=== PATIENT | female | born 1980 | race Caucasian/White ===

== ENCOUNTER 2022-10-19 17:53 | Emergency (ER) | payer BC ==
[~2022-10-19] VITALS: Ht 172.7 cm; Wt 97.7 kg
[2022-10-19 17:59] VITALS: BP 128/77
[2022-10-19] MEDS ORDERED: ibuprofen tablet 400 MG TABLET PO ONE (20:25)
[2022-10-19] MEDS ORDERED: HYDROcodone/acetaminophen 5mg/325mg tablet PO ONE ×2 (20:25→21:20)
--- NOTE | 2022-10-19 20:40 | NUR ---
agree with derek franco general assessment.
[2022-10-19] MEDS ORDERED: HYDR-3965 PO (21:25)
== END 2022-10-19 21:50 | disposition home or self-care (01) ==
LOC: ER 17:54
DX: S42.401A Unspecified fracture of lower end of right humerus, initial encounter for closed fracture (principal); S60.512A Abrasion of left hand, initial encounter; S60.511A Abrasion of right hand, initial encounter; Z88.0 Allergy status to penicillin; Z91.030 Bee allergy status; W17.89XA Other fall from one level to another, initial encounter; Y93.89 Activity, other specified; Y92.89 Other specified places as the place of occurrence of the external cause; Y99.8 Other external cause status
CPT/HCPCS: 73030; 99283; A6222; A4565; A6258